=== PATIENT | male | born 1955 | race Caucasian/White ===

== ENCOUNTER → 2018-08-21 09:14 | Outpatient (CLI) | payer MEDICARE, SELFPAY ==
[2018-08-21 09:43] LABS: Add Manual Diff / Slide Review NO; Basophils Absolute Auto 100 /uL (0-100); Basophils Percent Auto 0.6 % (0-2); Eosinophils Absolute Auto 300 /uL (0-450); Eosinophils Percent Auto 2.6 % (2-4); Hematocrit 45.3 % (41-53); Hemoglobin 15.7 g/dL (13.5-17.5); Lymphocytes Absolute Auto 2000 /uL (1100-4500); Mean Corpuscular HGB Conc 34.6 % (30-36); Mean Corpuscular Hemoglobin 32.8 PG (26-34); Mean Corpuscular Volume 94.6 fL (80-100); Monocytes Absolute Auto 1000 /uL (0-900); Monocytes Percent Auto 10.6 % (3-14); Neutrophils Absolute Auto 6500 /uL (1500-7000); Neutrophils Percent Auto 66.2 % (50-75); Platelet Count 309 X10^3/uL (150-400); Red Blood Cell Count 4.79 X10^6/uL (4.5-5.9); Red Cell Distribution Width 14.5 % (11.6-14.8); White Blood Cell Count 9.9 X10^3/uL (4.5-11.0)
[2018-08-21 10:08] LABS: Alanine Aminotransferase 28 IU/L (21-72); Albumin 4.3 g/dL (3.5-5.0); Albumin Globulin Ratio 1.3 (1.0-2.8); Alkaline Phosphatase 76 U/L (38-126); Aspartate Aminotransferase 20 IU/L (17-59); BUN Creatinine Ratio 18.9 (6-22); Bilirubin Total 0.9 mg/dL (0.2-1.3); Blood Urea Nitrogen 17 mg/dL (9-20); Calcium 9.6 mg/dL (8.4-10.2); Carbon Dioxide 30 mmol/L (22-32); Chloride 101 mmol/L (98-107); Cholesterol 162 mg/dL (140-199); Estimated Glomerular Filt Rate > 60.0 mL/min (>60); Globulin 3.3 g/dL (1.7-4.1); Glucose 110 mg/dL (80-110); HDL Cholesterol 49 mg/dL (40-60); HEMOLYSIS < 15 (0-50); LDL Cholesterol Calculated 100 mg/dL (<100); Potassium 4.3 mmol/L (3.4-5.1); Sodium 138 mmol/L (137-145); Total Protein 7.6 g/dL (6.3-8.2); Triglycerides 66 mg/dL (35-150)
[2018-08-21 10:38] LABS: Prostate Specific Antigen 0.584 ng/mL (0.10-4.00)
== END ==
PROVIDERS: Visit Provider Hospitalist
DX: E78.5 Hyperlipidemia, unspecified (principal)
CPT/HCPCS: 36415; 80053; 80061; 84153; 85025

== ENCOUNTER → 2019-04-28 09:06 | Outpatient (CLI) | payer MEDICARE, SELFPAY ==
[2019-04-28 10:01] LABS: Add Manual Diff / Slide Review NO; Basophils Absolute Auto 100 /uL (0-100); Basophils Percent Auto 0.7 % (0-2); Eosinophils Absolute Auto 400 /uL (0-450); Eosinophils Percent Auto 3.9 % (2-4); Hematocrit 44.5 % (41-53); Hemoglobin 15.4 g/dL (13.5-17.5); Lymphocytes Absolute Auto 2300 /uL (1100-4500); Lymphocytes Percent Auto 24.5 % (25-40); Mean Corpuscular HGB Conc 34.6 % (30-36); Mean Corpuscular Hemoglobin 32.6 PG (26-34); Mean Corpuscular Volume 94.2 fL (80-100); Monocytes Absolute Auto 1100 /uL (0-900); Monocytes Percent Auto 11.8 % (3-14); Neutrophils Absolute Auto 5600 /uL (1500-7000); Neutrophils Percent Auto 59.1 % (50-75); Platelet Count 286 X10^3/uL (150-400); Red Blood Cell Count 4.72 X10^6/uL (4.5-5.9); Red Cell Distribution Width 14.3 % (11.6-14.8); White Blood Cell Count 9.5 X10^3/uL (4.5-11.0)
[2019-04-28 10:07] LABS: Alanine Aminotransferase 26 IU/L (<50); Albumin 4.2 g/dL (3.5-5.0); Albumin Globulin Ratio 1.2 (1.0-2.8); Alkaline Phosphatase 77 U/L (38-126); Aspartate Aminotransferase 25 IU/L (17-59); BUN Creatinine Ratio 16.7 (6-22); Bilirubin Total 0.9 mg/dL (0.2-1.3); Blood Urea Nitrogen 15 mg/dL (9-20); Calcium 9.1 mg/dL (8.4-10.2); Carbon Dioxide 31 mmol/L (22-32); Chloride 101 mmol/L (98-107); Cholesterol 156 mg/dL (140-199); Estimated Glomerular Filt Rate > 60.0 mL/min (>60); Globulin 3.6 g/dL (1.7-4.1); Glucose 101 mg/dL (80-110); HDL Cholesterol 38 mg/dL (40-60); HEMOLYSIS < 15 (0-50); LDL Cholesterol Calculated 105 mg/dL (<100); Potassium 3.8 mmol/L (3.4-5.1); Sodium 139 mmol/L (137-145); Total Protein 7.8 g/dL (6.3-8.2); Triglycerides 65 mg/dL (35-150)
== END ==
PROVIDERS: PCP Family Medicine; Referring Provider Family Medicine; Visit Provider Family Medicine
DX: E78.5 Hyperlipidemia, unspecified (principal); Z12.5 Encounter for screening for malignant neoplasm of prostate
CPT/HCPCS: 36415; 80053; 80061; 85025; G0103

== ENCOUNTER → 2020-03-12 08:40 | Outpatient (CLI) | payer MEDICARE, SELFPAY ==
[2020-03-12 09:18] LABS: Add Manual Diff / Slide Review NO; Basophils Absolute Auto 100 /uL (0-100); Basophils Percent Auto 0.9 % (0-2); Eosinophils Absolute Auto 500 /uL (0-450); Eosinophils Percent Auto 6.4 % (2-4); Hematocrit 45.5 % (41-53); Hemoglobin 15.2 g/dL (13.5-17.5); Lymphocytes Absolute Auto 2200 /uL (1100-4500); Lymphocytes Percent Auto 27.4 % (25-40); Mean Corpuscular HGB Conc 33.5 % (30-36); Mean Corpuscular Hemoglobin 31.8 PG (26-34); Mean Corpuscular Volume 94.9 fL (80-100); Monocytes Absolute Auto 1100 /uL (0-900); Monocytes Percent Auto 12.8 % (3-14); Neutrophils Absolute Auto 4300 /uL (1500-7000); Neutrophils Percent Auto 52.5 % (50-75); Platelet Count 290 X10^3/uL (150-400); Red Cell Distribution Width 14.1 % (11.6-14.8); White Blood Cell Count 8.2 X10^3/uL (4.5-11.0)
[2020-03-12 09:44] LABS: HEMOLYSIS < 15 (0-50); Potassium 4.3 mmol/L (3.4-5.1)
[2020-03-12 09:45] LABS: Alanine Aminotransferase 23 IU/L (<50); Albumin 3.9 g/dL (3.5-5.0); Albumin Globulin Ratio 1.1 (1.0-2.8); Alkaline Phosphatase 81 U/L (38-126); Aspartate Aminotransferase 21 IU/L (17-59); BUN Creatinine Ratio 15.7 (6-22); Bilirubin Total 0.8 mg/dL (0.2-1.3); Blood Urea Nitrogen 14 mg/dL (9-20); Calcium 9.1 mg/dL (8.4-10.2); Carbon Dioxide 31 mmol/L (22-32); Chloride 104 mmol/L (98-107); Estimated Glomerular Filt Rate > 60.0 mL/min (>60); Globulin 3.4 g/dL (1.7-4.1); Glucose 112 mg/dL (80-110); Sodium 139 mmol/L (137-145); Total Protein 7.3 g/dL (6.3-8.2)
[2020-03-12 10:19] LABS: Thyroid Stimulating Hormone 3.27 uIU/mL (0.47-4.68)
== END ==
PROVIDERS: PCP Family Medicine; Referring Provider Family Medicine; Visit Provider Family Medicine
DX: E78.5 Hyperlipidemia, unspecified (principal); E78.00 Pure hypercholesterolemia, unspecified; N52.9 Male erectile dysfunction, unspecified
CPT/HCPCS: 36415; 80053; 84153; 84443; 85025

== ENCOUNTER → 2020-08-02 08:32 | Outpatient (CLI) | payer MEDICARE, SELFPAY ==
[2020-08-02 10:27] LABS: Alanine Aminotransferase 23 IU/L (<50); Albumin 3.8 g/dL (3.5-5.0); Albumin Globulin Ratio 1.1 (1.0-2.8); Alkaline Phosphatase 90 U/L (38-126); Aspartate Aminotransferase 24 IU/L (17-59); BUN Creatinine Ratio 15.7 (6-22); Bilirubin Total 0.8 mg/dL (0.2-1.3); Blood Urea Nitrogen 14 mg/dL (9-20); Calcium 9.3 mg/dL (8.4-10.2); Carbon Dioxide 29 mmol/L (22-32); Chloride 102 mmol/L (98-107); Estimated Glomerular Filt Rate > 60.0 mL/min (>60); Globulin 3.5 g/dL (1.7-4.1); Glucose 111 mg/dL (80-110); HEMOLYSIS < 15 (0-50); Potassium 4.7 mmol/L (3.4-5.1); Sodium 138 mmol/L (137-145); Total Protein 7.3 g/dL (6.3-8.2)
[2020-08-02 10:30] LABS: Hemoglobin A1C% w Est Avg Glu 5.9 % (4.0-6.0)
== END ==
PROVIDERS: PCP Family Medicine; Referring Provider Family Medicine; Visit Provider Family Medicine
DX: R73.9 Hyperglycemia, unspecified (principal)
CPT/HCPCS: 36415; 80053; 83036

== ENCOUNTER → 2021-03-07 09:03 | Outpatient (CLI) | payer MEDICARE, SELFPAY ==
[2021-03-07 12:25] LABS: Add Manual Diff / Slide Review NO; Basophils Absolute Auto 100 /uL (0-100); Eosinophils Absolute Auto 600 /uL (0-450); Eosinophils Percent Auto 6.8 % (2-4); Hematocrit 45.8 % (41-53); Hemoglobin 15.6 g/dL (13.5-17.5); Lymphocytes Absolute Auto 2600 /uL (1100-4500); Lymphocytes Percent Auto 28.8 % (25-40); Mean Corpuscular HGB Conc 34.1 % (30-36); Mean Corpuscular Hemoglobin 32.8 PG (26-34); Mean Corpuscular Volume 96.2 fL (80-100); Monocytes Absolute Auto 1000 /uL (0-900); Monocytes Percent Auto 11.5 % (3-14); Neutrophils Absolute Auto 4700 /uL (1500-7000); Neutrophils Percent Auto 51.9 % (50-75); Platelet Count 346 X10^3/uL (150-400); Red Blood Cell Count 4.76 X10^6/uL (4.5-5.9); Red Cell Distribution Width 13.9 % (11.6-14.8)
[2021-03-07 13:45] LABS: Alanine Aminotransferase 25 IU/L (<50); Albumin 4.1 g/dL (3.5-5.0); Albumin Globulin Ratio 1.2 (1.0-2.8); Alkaline Phosphatase 82 U/L (38-126); Aspartate Aminotransferase 23 IU/L (17-59); BUN Creatinine Ratio 13.2 (6-22); Blood Urea Nitrogen 12 mg/dL (9-20); Calcium 9.3 mg/dL (8.4-10.2); Carbon Dioxide 31 mmol/L (22-32); Chloride 103 mmol/L (98-107); Cholesterol 163 mg/dL (140-199); Estimated Glomerular Filt Rate > 60.0 mL/min (>60); Globulin 3.4 g/dL (1.7-4.1); Glucose 94 mg/dL (80-110); HDL Cholesterol 41 mg/dL (40-60); HEMOLYSIS < 15 (0-50); LDL Cholesterol Calculated 97 mg/dL (<100); Potassium 4.5 mmol/L (3.4-5.1); Sodium 139 mmol/L (137-145); Total Protein 7.5 g/dL (6.3-8.2); Triglycerides 127 mg/dL (35-150)
[2021-03-07 14:07] LABS: Prostate Specific Antigen Scrn 0.665 ng/mL (0.1-4.0)
[2021-03-07 14:08] LABS: TSH w/ Reflex to FT4 3.53 uIU/mL (0.47-4.68)
[2021-03-07 14:41] LABS: Hemoglobin A1C% w Est Avg Glu 5.6 % (4.0-6.0)
== END ==
PROVIDERS: PCP Family Medicine; Referring Provider Family Medicine; Visit Provider Family Medicine
DX: Z00.00 Encounter for general adult medical examination without abnormal findings (principal); E78.5 Hyperlipidemia, unspecified; Z12.5 Encounter for screening for malignant neoplasm of prostate
CPT/HCPCS: 36415; 80053; 80061; 83036; 84443; 85025; G0103

== ENCOUNTER → 2022-03-09 08:54 | Outpatient (CLI) | payer MEDICARE, SELFPAY ==
[2022-03-09 10:11] LABS: Add Manual Diff / Slide Review NO; Basophils Absolute Auto 100 /uL (0-100); Basophils Percent Auto 0.6 % (0-2); Eosinophils Absolute Auto 400 /uL (0-450); Hematocrit 42.8 % (41-53); Hemoglobin 14.5 g/dL (13.5-17.5); Lymphocytes Absolute Auto 2300 /uL (1100-4500); Lymphocytes Percent Auto 23.4 % (25-40); Mean Corpuscular HGB Conc 33.9 % (30-36); Mean Corpuscular Hemoglobin 32.3 PG (26-34); Mean Corpuscular Volume 95.4 fL (80-100); Monocytes Absolute Auto 1100 /uL (0-900); Monocytes Percent Auto 11.3 % (3-14); Neutrophils Absolute Auto 5900 /uL (1500-7000); Neutrophils Percent Auto 60.7 % (50-75); Platelet Count 303 X10^3/uL (150-400); Red Blood Cell Count 4.49 X10^6/uL (4.5-5.9); Red Cell Distribution Width 14.2 % (11.6-14.8); White Blood Cell Count 9.7 X10^3/uL (4.5-11.0)
[2022-03-09 11:13] LABS: Alanine Aminotransferase 22 IU/L (<50); Albumin Globulin Ratio 1.2 (1.0-2.8); Alkaline Phosphatase 87 U/L (38-126); Aspartate Aminotransferase 20 IU/L (17-59); BUN Creatinine Ratio 17.1 (6-22); Blood Urea Nitrogen 14 mg/dL (9-20); Calcium 8.9 mg/dL (8.4-10.2); Carbon Dioxide 32 mmol/L (22-32); Chloride 100 mmol/L (98-107); Cholesterol 166 mg/dL (140-199); Estimated Glomerular Filt Rate > 60 mL/min (>60); Globulin 3.4 g/dL (1.7-4.1); Glucose 96 mg/dL (80-110); HDL Cholesterol 49 mg/dL (40-60); HEMOLYSIS < 15 (0-50); LDL Cholesterol Calculated 101 mg/dL (<100); Potassium 4.4 mmol/L (3.4-5.1); Sodium 139 mmol/L (137-145); Total Protein 7.4 g/dL (6.3-8.2); Triglycerides 82 mg/dL (35-150)
[2022-03-09 11:37] LABS: TSH w/ Reflex to FT4 5.19 uIU/mL (0.47-4.68)
[2022-03-09 11:41] LABS: Prostate Specific Antigen 0.777 ng/mL (0.10-4.00)
[2022-03-09 12:21] LABS: Free T4, Direct Thyroxine 1.33 ng/dL (0.78-2.19)
[2022-03-09 15:28] LABS: Hemoglobin A1C% w Est Avg Glu 5.8 % (4.0-6.0)
== END ==
PROVIDERS: PCP Family Medicine; Referring Provider Family Medicine; Visit Provider Family Medicine
DX: C83.37 Diffuse large B-cell lymphoma, spleen (principal); R73.9 Hyperglycemia, unspecified; E78.5 Hyperlipidemia, unspecified; Z00.00 Encounter for general adult medical examination without abnormal findings
CPT/HCPCS: 36415; 80053; 80061; 83036; 84153; 84439; 84443; 85025

== ENCOUNTER → 2022-06-09 07:58 | Outpatient (CLI) | payer MEDICARE, SELFPAY ==
[2022-06-09 09:48] LABS: Free T4, Direct Thyroxine 1.43 ng/dL (0.78-2.19)
[2022-06-09 10:02] LABS: Thyroid Stimulating Hormone 3.38 uIU/mL (0.47-4.68)
== END ==
PROVIDERS: PCP Family Medicine; Referring Provider Family Medicine; Visit Provider Family Medicine
DX: E03.9 Hypothyroidism, unspecified (principal)
CPT/HCPCS: 36415; 84439; 84443

== ENCOUNTER → 2023-03-13 09:08 | Outpatient (CLI) | payer MEDICARE, SELFPAY ==
--- NOTE | 2023-03-13 | DI.RAD.S_ITS ---
PROCEDURE: XR KNEE LT 3V INDICATIONS: LEFT KNEE PAIN TECHNIQUE: 3 views of the knee were acquired. COMPARISON: [facility], KNEE 1-2 VIEWS RIGHT, 03/29/2010, 15:49. [facility], KNEE 1-2 VIEWS LEFT, 12/22/2009, 15:17. FINDINGS: Bones: Left knee arthroplasty. There is minimal subsidence of the tibial component. Increased mixed lucent and sclerotic appearance surrounding the hardware. There also ossification superior to the patella. Soft tissues: No joint effusion. No suspicious soft tissue calcifications. IMPRESSION: Increased mixed lucent and sclerotic appearance surrounding the hardware of the knee arthroplasty. Increased ossifications superior to the patella. If further imaging is desired, consider cross-sectional imaging versus bone scan. Dictated by: Hawk Hooper M.D. on 03/13/2023 at 13:00 Approved by: Hawk Hooper M.D. on 03/13/2023 at 13:03
[2023-03-13 09:44] LABS: Hematocrit 46.4 % (41-53); Hemoglobin 15.9 g/dL (13.5-17.5); Mean Corpuscular HGB Conc 34.2 % (30-36); Mean Corpuscular Hemoglobin 32.2 PG (26-34); Mean Corpuscular Volume 94.2 fL (80-100); Platelet Count 281 X10^3/uL (150-400); Red Blood Cell Count 4.93 X10^6/uL (4.5-5.9); White Blood Cell Count 8.4 X10^3/uL (4.5-11.0)
[2023-03-13 10:24] LABS: Free T4, Direct Thyroxine 1.35 ng/dL (0.78-2.19)
[2023-03-13 10:38] LABS: Thyroid Stimulating Hormone 3.01 uIU/mL (0.47-4.68)
[2023-03-13 13:26] LABS: Neutrophils Absolute Manual 4704 /uL (3000-5900); Platelet Estimate Adequate on smear; RBC Morphology Normal Morphology; Total Cells Counted 100
[2023-03-13 21:04] LABS: Alanine Aminotransferase 25 IU/L (<50); Albumin 4.3 g/dL (3.5-5.0); Albumin Globulin Ratio 1.1 (1.0-2.8); Alkaline Phosphatase 83 U/L (38-126); Aspartate Aminotransferase 28 IU/L (17-59); BUN Creatinine Ratio 16.9 (6-22); Bilirubin Total 1.1 mg/dL (0.2-1.3); Blood Urea Nitrogen 15 mg/dL (9-20); Calcium 9.5 mg/dL (8.4-10.2); Carbon Dioxide 24 mmol/L (22-32); Chloride 103 mmol/L (98-107); Cholesterol 157 mg/dL (140-199); Estimated Glomerular Filt Rate > 60 mL/min (>60); Glucose 95 mg/dL (80-110); HDL Cholesterol 40 mg/dL (40-60); HEMOLYSIS < 15 (0-50); LDL Cholesterol Calculated 103 mg/dL (<100); Potassium 4.1 mmol/L (3.4-5.1); Sodium 137 mmol/L (137-145); Total Protein 8.3 g/dL (6.3-8.2); Triglycerides 71 mg/dL (35-150)
[2023-03-13 21:34] LABS: Prostate Specific Antigen Scrn 1.06 ng/mL (0.1-4.0)
== END ==
PROVIDERS: PCP Family Medicine; Referring Provider Family Medicine; Visit Provider Family Medicine
DX: Z00.00 Encounter for general adult medical examination without abnormal findings; C83.37 Diffuse large B-cell lymphoma, spleen; R73.9 Hyperglycemia, unspecified; E03.9 Hypothyroidism, unspecified; Z12.5 Encounter for screening for malignant neoplasm of prostate; E78.5 Hyperlipidemia, unspecified; Z96.652 Presence of left artificial knee joint
CPT/HCPCS: 36415; 73562; 80053; 80061; 84439; 84443; 85025; G0103

== ENCOUNTER → 2023-08-02 10:02 | Outpatient (CLI) | payer MEDICARE, SELFPAY ==
[2023-08-02 10:24] LABS: Add Manual Diff / Slide Review NO; Basophils Absolute Auto 100 /uL (0-100); Basophils Percent Auto 0.8 % (0-2); Eosinophils Absolute Auto 400 /uL (0-450); Eosinophils Percent Auto 4.6 % (2-4); Hematocrit 43.1 % (41-53); Hemoglobin 14.8 g/dL (13.5-17.5); Lymphocytes Absolute Auto 2600 /uL (1100-4500); Mean Corpuscular HGB Conc 34.4 % (30-36); Mean Corpuscular Hemoglobin 32.9 PG (26-34); Mean Corpuscular Volume 95.7 fL (80-100); Monocytes Absolute Auto 1000 /uL (0-900); Monocytes Percent Auto 10.9 % (3-14); Neutrophils Absolute Auto 5400 /uL (1500-7000); Neutrophils Percent Auto 56.7 % (50-75); Platelet Count 282 X10^3/uL (150-400); Red Cell Distribution Width 14.4 % (11.6-14.8); White Blood Cell Count 9.5 X10^3/uL (4.5-11.0)
[2023-08-02 10:53] LABS: Albumin 4.3 g/dL (3.5-5.0); BUN Creatinine Ratio 21.3 (6-22); Blood Urea Nitrogen 20 mg/dL (9-20); Calcium 9.1 mg/dL (8.4-10.2); Carbon Dioxide 30 mmol/L (22-32); Chloride 105 mmol/L (98-107); Estimated Glomerular Filt Rate > 60 mL/min (>60); Glucose 102 mg/dL (80-110); HEMOLYSIS < 15 (0-50); Potassium 3.9 mmol/L (3.4-5.1); Sodium 139 mmol/L (137-145)
[2023-08-02 11:03] LABS: Prealbumin 25.3 mg/dL (17.6-36.0)
[2023-08-02 11:10] LABS: Vitamin D 25 Hydroxy (D3) 40.9 ng/mL (30.0-100.0)
== END ==
LOC: RESP 10:03
PROVIDERS: PCP Family Medicine; Referring Provider Orthopaedic Surgery Adult Reconstructive Orthopaedic Surgery; Visit Provider Orthopaedic Surgery Adult Reconstructive Orthopaedic Surgery
DX: R77.0 Abnormality of albumin; R73.9 Hyperglycemia, unspecified; E55.9 Vitamin D deficiency, unspecified; Z01.818 Encounter for other preprocedural examination; Z01.812 Encounter for preprocedural laboratory examination
CPT/HCPCS: 36415; 80048; 82040; 82306; 83036; 84134; 85025

== ENCOUNTER → 2023-08-03 06:57 | Outpatient (CLI) | payer MEDICARE, SELFPAY | PROVIDERS: PCP Family Medicine; Referring Provider Orthopaedic Surgery Adult Reconstructive Orthopaedic Surgery; Visit Provider Orthopaedic Surgery Adult Reconstructive Orthopaedic Surgery | DX: Z01.818 Encounter for other preprocedural examination (principal) | CPT/HCPCS: 93005 ==

== ENCOUNTER 2023-09-21 08:51 | Inpatient (IN) | payer MEDICARE, SELFPAY ==
[2023-09-11 08:18] VITALS: BMI 32.4
[2023-09-21] VITALS (15 sets, daily range): BP systolic 98–136; BP diastolic 46–81; PULSE 71–100; RESP 14–18; TEMP 36.1–36.6; O2SAT 93–100; BMI 32.3
--- NOTE | 2023-09-21 06:00 | DI.RAD.S_ITS ---
PROCEDURE: XR KNEE LT 1TO2V INDICATIONS: L TKA rev TECHNIQUE: 2 view(s) of the knee acquired. COMPARISON: [facility], CR, XR KNEE LT 3V, 03/13/2023, 9:11. [facility], CR, XR KNEE 4+ VIEWS LEFT, 07/26/2023, 9:10. FINDINGS: Bones: Patient is status post knee joint arthroplasty. Hardware components are in expected positions. Visualized bony structures are intact. Soft tissues: Overlying postoperative changes are noted. IMPRESSION: Expected post-operative appearance of a knee arthroplasty. Dictated by: Mckenzie Brooke M.D. on 09/21/2023 at 16:41 Approved by: Mckenzie Brooke M.D. on 09/21/2023 at 16:42
[2023-09-21] MEDS: LACTATED RINGERS 1,000 ML 42 ML IV ×2 (09:34→12:34)
[2023-09-21] MEDS: MELOXICAM 7.5 MG TABLET 15 MG PO (09:34)
[2023-09-21] MEDS: ACETAMINOPHEN 325 MG TABLET 975 MG PO (09:34)
--- NOTE | 2023-09-21 10:18 | PM.PREOP ---
Pre-operative Note Interval Note History & Physical reviewed/Exam performed by Physician: Yes Changes to H&P: No
[2023-09-21] MEDS: CEFAZOLIN 2 GM/100 ML PREMIX 100 ML IV ×2 (10:49→21:40)
[2023-09-21] MEDS: TRANEXAMIC ACID 1,000 MG VIAL 1000 MG INJ ×2 (10:55→13:12)
--- NOTE | 2023-09-21 11:14 | SUR.OPER ---
Supine on padded OR bed. Pillow under head, arms secured on padded armboards <90 degree abduction. Safety belt across torso. Non-operative leg secured with tape over blanket over lower leg. Operative leg secured in Ad positioner. Foam padded brace at thigh of operative leg.
[2023-09-21] MEDS: ROPIVACAINE/EPI/CLONIDINE/KET 50 ML SYRINGE INJ (11:19)
[2023-09-21] MEDS: VANCOMYCIN 1,000 MG VIAL 1000 MG TOP (11:21)
--- NOTE | 2023-09-21 15:19 | P.OP_ITS ---
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 Post-op diagnosis: same Procedure & Clinicians Procedure: Revision femoral and tibial components of left total knee arthroplasty with robotic assistance Same procedure as scheduled: Yes Surgeon: Jadon Harris Handkerchief Cutter: Kristie Sommer Anesthesia Type: General, Spinal, Peripheral nerve block and Local Operative Notes Estimated Blood Loss (mL): 300 Tourniquet time (min): 120 Procedure in detail: Revision of femoral and tibial components of left total knee arthroplasty with Ruiz and [employer] revision total knee system with cone and stem fixation and robotic assistance Implants: * Size 8 left Oxinium constrained femoral component with L shaped 5 mm wedge posterior and distal on the lateral side, no augment on the posterior medial side, and a 15 mm distal medial augment with a 12 mm x 120 mm cemented stem * Size 20 left femoral cone * Size 7 left revision tibial base plate with 12 mm x 120 mm stem * Size 18 tibial cone * Retained patellar insert from primary surgery Procedure Summary: This 68-year-old male patient underwent a primary left total knee arthroplasty by 1 of my partners who has since retired in approximately 2009. He developed osteolysis and had ongoing pain and disability related to this. I obtained inflammatory markers which were normal as well as a knee aspiration which was negative for infection. His long leg scanogram indicated that he also had developed significant varus in his knee which I assumed was due to medial collapse of his implants. Intraoperatively this aligned with my experience as there was a large defect in the medial distal femur, as shown in the photograph below. Component removal did not result in any bone loss as neither the femoral nor the tibial implant was well fixed to bone and both were removed without the need for osteotomes in the bone cement interface. Robotic assistance was utilized to plan the procedure and eventually to prep for both the femoral and tibial sides. Prepping for the tibial side involved resecting down to a depth at which a 15 mm polyethylene insert was needed for balance. Prepping on the femoral side involved a large 15 mm augment in the area where he had had collapse in his distal medial femur. 12 mm x 120 mm stems were used on both sides. Cones were used on both sides. Following implantation he had appropriate balance, as it is shown on the screen shot from the robotic assistance below. Procedure in Detail: This patient was seen preoperatively and evaluated for knee pain which was refractory to numerous nonoperative treatment modalities. Their pain correlated with radiographic changes demonstrating osteolysis at the site of the prior total knee arthroplasty. The risks and benefits of continued nonoperative management versus operative management were discussed at length and all of the patient?s questions were answered. Additional educational materials providing further details beyond our discussion in clinic were provided via a publicly available patient education video which included the incidence of medical complications associated with total knee arthroplasty, reasons for revision following total knee arthroplasty, and patient satisfaction rates following total knee arthroplasty. With this understanding of the risks inherent to the procedure, the patient elected to move forward with operative management. Following preoperative optimization, the patient was scheduled for surgery. The patient was met in the preoperative holding area the day of the procedure and all questions were answered. The patient?s nares were swabbed with betadine in order to decolonize them from MRSA. Informed consent was signed and the left limb was marked with indelible ink.? The patient was brought back to the operating room where anesthesia was induced. The patient was transferred to the operating table and all bony prominences were padded. The operative site was prepped and draped in the usual sterile fashion. A second prep stick was utilized following drape placement. The incision was marked corresponding to the medial aspect of the tibial tubercle and the patella. Ioban was wrapped circumferentially around the knee. Prior to incision, tranexamic acid and cefazolin were administered. Templating images were displayed. A timeout procedure was performed verifying the patient?s identity, medical comorbidities, allergies, relevant medications, anesthesia type and the surgical plan. All present were in agreement. The assistance of a physician assistant service manager was required for positioning, room setup, soft tissue retraction and wound closure. Without this assistance, the procedure would have been significantly more challenging and time consuming.?? The tourniquet was inflated prior to incision. I made an anterior incision over the knee, dissected through the subcutaneous tissues and identified the lateral border of the VMO. Medial and lateral soft tissue flaps were developed. A medial parapatellar arthrotomy was performed through the prior arthrotomy site ensuring that adequate capsular tissue would remain for closure at the conclusion of the procedure. An intraosseous needle was inserted into the medial proximal tibia and 50 mL of normal saline with 1 mg of vancomycin were infiltrated into the bone in order to bathe all of the tissues in the surgical site with dilute vancomycin. The knee was brought into extension and the medial soft tissues were released off the joint line of the tibia. Tissue overlying the distal anterior femur was released to allow for later assessment for anterior notching but left in place. A portion of the retropatellar fat pad was excised while protecting the patellar tendon. The patella was everted. Osteophytes were excised and a lateral facetectomy was performed as there was significant bone lateral to the patellar button. The patella was released from its everted position.?? Debrided both gutters and sent these for culture. This involved releasing off of both sides of the arthrotomy and bluntly dissecting around to free up scar tissue. The medial peel was extended around to the posterior medial aspect of the tibia. The robotic pins for the Cori were inserted into the femur and the tibia. In the femur this was within the wound and in the tibia it was distal to the wound through a separate stab incision. Positioned the rays to be captured by the robotic platform and tested the knee. This demonstrated, as had been demonstrated on the long leg scanogram preoperatively as well as gross examination that the knee was in 15? of varus. Stressed and unstressed range of motion examinations were performed and a plan was constructed for the eventual balanced of the total knee using the legion platform. I then proceeded with component removal. I began by removing the polyethylene. It was an old pew hip so I used an osteotome to remove the post of the rotating platform insert and then removed the polyethylene. I found that the femoral component was grossly loose when I introduced an osteotome into the interface between the bone and the cement so this was tapped off. There was no bone loss as the femur had completely de bonded from the cement. There was some cement left behind on the femur. I then moved to the tibia. The tibia was exposed and I finished the medial peel around the posterior medial aspect of the base plate. I introduced an osteotome into the bone cement interface and again found that it was grossly loose. It was removed without the need for any disruption of the bone cement interface and left all of the cement behind, as photographed above. I then prepared the tibia. I initially began by exposing the cut tibial surface and removing all of the cement. This involved using a flag osteotome. The cement which went down into the diaphysis of the tibia was removed en bloc. The remainder of the cement on the joint surface was removed piecemeal. I then used the robotic system to sink the tibial joint resection down to an area at which I would achieve good bony contact. I sequentially moved this further down the tibia until I had achieved a good surface with which the base plate could interdigitate. I inserted a rigid Reamer down the tibial canal and prepped for a tibial cone off of this. Prepped for a long 20 mm cone. This involved using a Reamer. I then inserted the tibial cone trial. I ensured that there was good bony contact circumferentially around the entire cone. I placed a 12 mm x 120 mm stem trial along with a trial base plate. I initially placed a size 6 base plate but felt that a size 7 base plate would likely be used for final implantation. I then moved onto the femur. I mapped out the defects, the largest of which was in the medial distal femur. That is shown on the image above where red areas demarcate bony defects. I believe that the collapse of his medial femoral condyle is what had allowed him to end up in such an extreme of varus. I initially prep for a 10 mm distal medial augment but found that this was insufficient as there was still not good bony contact. I therefore prepped for a 15 mm distal medial augment. Posterior medially the bur resected bone in the area intended to the set point for the final implant so I did not use any augment there. I prepped for a 5 mm augment on the lateral side both posteriorly and distally. I then prepped for a femoral cone. This involved inserting a rigid Reamer, reaming off of that, and broaching for the smallest cone size. I then inserted the femoral trial including a 12 mm x 120 mm stem and found that there was conflict with the cone positioning. I therefore removed the cone trial, reinserted the femoral trial, inserted a rigid Reamer through the housing of the femoral trial to get a reference point which would not conflict with the femoral component, and re-prepped the area for the femoral cone, up sizing to a size 20 cone in the process. I had initially prepped for a size 18 which is the smallest cone and therefore plan to use the 2nd smallest sized cone on the femoral side. I inserted a trial cone for the size 20 as well as the femoral trial including the 12 mm x 120 mm stem and the corresponding augments that I had prepped for. I inserted the 15 mm polyethylene as well and trialed at that point in time. This indicated good balance in flexion and extension as is shown on the image above. This aligned with my intraoperative assessment. I was satisfied with the trials. I removed all of the components as well as the robotic rays and the bony ends were pulse lavaged and then soaked in a dilute mixture of Betadine and peroxide while final components were assembled on the back table. The bony ends were irrigated and cement was prepared. Cones were placed into both the femur and the tibia. Cement was placed on the entirety of the undersurface of the tibial component. Cement was placed onto the dry tibia and pressurized into the cancellous bone. I impacted the tibial component into place. Cement was removed. The tibia was reduced underneath the femur. A separate batch of cement was used for the femoral component. I placed cement onto the dry surface of the resected femur. I placed the femoral component as well as the intended polyethylene trial. Cement was removed from around the femur. I brought the knee into extension and manually pressurized the construct by pushing on the heel while the cement dried. The knee was bathed in a dilute mixture of betadine and peroxide. A mixture of Ropivacaine, Epinephrine, Clonidine and Toradol was infiltrated throughout the soft tissues into structures including the VMO, patellar tendon, quadriceps tendon, MCL and femoral periosteum. A low adductor canal block was also performed using this mixture. The knee was copiously irrigated with pulse lavage. Once cement had been allowed to dry the knee was again trialed. Range of motion was assessed by ensuring the knee could achieve full extension and assessing maximum passive knee flexion by elevating the femur and allowing the heel to passively fall towards the buttock. Gap symmetry was assessed by stressing the medial and lateral compartments in both extension and flexion. Laxity was assessed in both extension and flexion and the polyethylene trial was adjusted with shims as necessary. Patellar tracking was assessed with knee flexion. The tourniquet was let down and the polyethylene trial was removed. I inspected the knee inspected for excess cement and any residual bleeding. Once hemostasis was achieved I inserted the final polyethylene and ensured appropriate engagement of the dovetail locking mechanism.? I was satisfied with the trialing at this point in time. The arthrotomy was closed with absorbable interrupted suture ensuring that this extended to the top of the arthrotomy. This was backed up with running barbed suture throughout the arthrotomy. The skin was closed with 2-0 and 3-0 sutures. Surgical glue was applied and a soft dressing was placed.?The sponge, instrument and needle counts were reported as being correct at the end of the case.??No obvious complications occurred. The patient was transferred from the operating table back to a stretcher. The patient emerged from anesthesia without difficulty and was taken to the PACU in a stable condition.? Plan for aftercare: * Weightbearing as tolerated * Cefadroxil 500 mg BID to be prescribed for 2 weeks for PJI prophylaxis. Will receive an additional dose of ancef tonight in addition to the intraoperative ancef and intraosseous vancomycin administered during the procedure * Mobilization with nursing staff this evening in anticipation of physical therapy session tomorrow morning. Patient will arrive on the floor after PT has left for the evening and will not get a PT session tonight but still should get out of bed and ambulate short distances. * Aspirin 81 twice per day for DVT prophylaxis * Multimodal pain regimen with no IV opioids ordered * Anticipate discharge home tomorrow * Follow up at [facility] in 2 weeks * Detailed postoperative instructions available at [email or web address]
[2023-09-21] MEDS: ONDANSETRON 4 MG/2 ML INJ IV (15:57)
[2023-09-21] MEDS: hydrOXYzine 50 MG/ML INJ 25 MG IM (15:59)
[2023-09-21] MEDS: METOCLOPRAMIDE 10 MG/2 ML INJ IV (15:59)
[2023-09-21] MEDS: OXYCODONE IR 5 MG TABLET PO (16:06)
[2023-09-21] MEDS: fentaNYL 100 MCG/2 ML INJ IV (16:16)
[2023-09-21] MEDS: LACTATED RINGERS 1,000 ML 100 ML IV (18:33)
--- NOTE | 2023-09-21 18:57 | PC.NURSE ---
Arrived from PACU @ 1635 Resting quietly, arouses when spoken too. IVF infusing as per MD orders w/o incidense. SEBASTIEN dsg intact/patent Satisfactory post op course. Call light w/in reach. Bed alarm on for pt safety. Continue w/plan of care.
[2023-09-21] MEDS: DOCUSATE 100 MG CAPSULE PO (21:40)
[2023-09-21] MEDS: ATORVASTATIN 20 MG TABLET 10 MG PO (21:40)
[2023-09-21] MEDS: ASPIRIN EC 81 MG TABLET PO (21:41)
[2023-09-21] MEDS: OXYCODONE IR 10 MG TABLET PO (21:55)
[2023-09-22 04:36] VITALS: BP 113/58; PULSE 89; RESP 14; TEMP 36.3; O2SAT 100
[2023-09-22] MEDS: CEFAZOLIN 2 GM/100 ML PREMIX 100 ML IV (05:07)
[2023-09-22] MEDS: ACETAMINOPHEN 325 MG TABLET 650 MG PO (05:08)
[2023-09-22 07:10] LABS: Hemoglobin 11.8 g/dL (13.5-17.5)
[2023-09-22] MEDS: LEVOTHYROXINE 50 MCG TABLET PO (07:51)
[2023-09-22] MEDS: OXYCODONE IR 10 MG TABLET PO (07:57)
[2023-09-22 08:00] VITALS: BP 92/59; PULSE 67; RESP 16; TEMP 36.4; O2SAT 100
[2023-09-22] MEDS: ASPIRIN EC 81 MG TABLET PO (08:42)
[2023-09-22] MEDS: DOCUSATE 100 MG CAPSULE PO (08:42)
--- NOTE | 2023-09-22 09:28 | PM.DS.1 ---
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 Post-op diagnosis: same Procedure & Clinicians Procedure: Revision femoral and tibial components of left total knee arthroplasty with robotic assistance Same procedure as scheduled: Yes Surgeon: Jadon Harris Media Relations Coordinator: Kristie Sommer Anesthesia Type: General, Spinal, Peripheral nerve block and Local Operative Notes Estimated Blood Loss (mL): 300 Tourniquet time (min): 120 Procedure in detail: Revision of femoral and tibial components of left total knee arthroplasty with Ruiz and [employer] revision total knee system with cone and stem fixation and robotic assistance Implants: Size 8 left Oxinium constrained femoral component with L shaped 5 mm wedge posterior and distal on the lateral side, no augment on the posterior medial side, and a 15 mm distal medial augment with a 12 mm x 120 mm cemented stem Size 20 left femoral cone Size 7 left revision tibial base plate with 12 mm x 120 mm stem Size 18 tibial cone Retained patellar insert from primary surgery Discharge Providers Provider Date of admission: 09/21/23 08:51 Discharge Date: 09/22/23 Primary care physician: Dre Hunter DO Consults: 09/11/23 09:36 Consult to Anesthesiology Routine Comment: Consulting Provider: Anesthesiologist Reason for consultation: PAC courtesy re: abnormal pre-op EKG 09/21/23 06:00 Consult to Anesthesiology Routine Comment: Consulting Provider: Anesthesiologist Reason for consultation: Regional block for post operative pain control 09/21/23 17:19 Consult to Discharge Planning Routine Comment: Consult to Physical Therapy Evaluate & Treat Comment: Physician Instructions: postop TKA protocol Discharge provider: Kristie Sommer PA-C Summary Hospital Course Discharge Diagnosis: Osteolysis of left total knee arthroplasty, s/p revision of femoral and tibial components Hospital Course: Mr Flores's hospital course was unremarkable. On the morning of POD# 1, he was feeling well. He c/o soreness in his left knee as well as CHEATHAM from oxycodone; he was willing to try tramadol for pain instead. He was eating and voiding without difficulty. His SEBASTIEN drain had not been functioning since surgery; this was changed at bedside. Exam Vital Signs (past 8 hours): - 09/22/23 04:36 09/22/23 08:00 Temperature 97.3 F L 97.5 F L Pulse Rate 89 67 Respiratory Rate 14 16 Blood Pressure 113/58 L 92/59 L Pulse Oximetry 100 100 Oxygen Delivery Method Nasal Cannula Oxygen Flow Rate 2 Narrative Exam Narrative: 4/5 strength in hip flexors, quadriceps, hamstrings; 5/5 DF, PF, EHL on left. Sensation to light touch intact, calf soft and compressible. New SEBASTIEN system placed and functioning. Cultures sent intraoperatively: GS showed no organisms, aerobic preliminarily no growth, anaerobic pending. Objective Labs 09/22/23 06:18 Labs: Laboratory Results - last 24 hr 09/22/23 06:18 Hgb 11.8 L Hct 35.0 L PFSH Medical History (Updated 07/20/23 @ 09:32 by Gracia Jung PA-C) Medicare annual wellness visit, subsequent Well adult exam Hypothyroid Hyperglycemia Erectile dysfunction Encounter for well adult exam without abnormal findings Plantar fasciitis Hyperlipidemia Lymphoma (~2015) Rheumatoid arthritis Surgical History (Updated 09/22/23 @ 10:17 by Kristie Sommer PA-C) History of right cataract extraction History of total left knee replacement History of total right knee replacement Anesthesia H/O splenectomy (~2017) Family History Father Heart disease Mother Age: 95 High cholesterol Social History household members: spouse Smoking Status: Former smoker Tobacco: How many years used: 5 Smokeless tobacco user: chewing tobacco (Quit 2019) quit status: considering quitting alcohol intake: former substance use type: does not use Discharge Assessment & Plan Assessment and Plan Assessment: Osteolysis of left total knee arthroplasty, s/p revision of femoral and tibial components Plan of Treatment: Discharge home after PT, multimodal pain control, Cefadroxil BID x 2 weeks, outpt PT, ASA 81mg BID for VTE prophylaxis. Will review final cultures at postop. Discharge Plan Discharge Plan Patient Disposition: Home Discharge orders & Medications Prescriptions: New tramadol 50 mg Tablet 50 mg PO Q4-6H PRN (Reason: Pain, Moderate (4-6)) Qty: 30 0RF cefadroxil 500 mg capsule 500 mg PO BID Qty: 28 0RF Continued atorvastatin [Lipitor] 10 mg tablet 10 mg PO QDAY Qty: 90 3RF meloxicam 15 mg tablet 15 mg PO DAILY Qty: 30 0RF Rx Instructions: do not combine this with other NSAIDS. Ok to take with tylenol. levothyroxine 50 mcg tablet 50 mcg PO DAILY Qty: 90 3RF Rx Instructions: Take one tablet by mouth daily ibuprofen [Advil] 200 mg tablet 200 mg PO Q6H PRN (Reason: Pain) sildenafil (pulm.hypertension) 20 mg tablet 20 mg PO PRN PRN (Reason: Sexual Activity) Rx Instructions: Take 2-3 45 minutes prior to sexual activity Follow up/Referrals: Dre Hunter DO [Primary Care Provider] - Jadon Harris MD [Physician] - 10/05/23 9:00 am (Follow up w/ Eddie Rondon PA-C, at [facility] office in [place].) Diet/Activity/Treatments Diet: Diet as Tolerated Activity: Weightbearing as tolerated. Walk frequently! Cold/Heat Therapy: Ice to knee as needed for pain. Skin/Wound/Dressing Care Report to your healthcare provider any signs of infection, such as:: chills, fever, night sweats, unusual drainage and unusual redness Dressing: May remove LETTY wrap and shower on 09/24/2023. Leave Aquacel dressing place until follow up in office. No bathing or otherwise soaking incision. Call the office if the dressing becomes saturated inside. Visit Report/Discharge Packet Instructions: DI for Knee Replacement, DI for Prescription Opioid Use Stand Alone Forms: Patient Portal/API, Stroke Signs & Symptoms, Surgery Discharge Discharge Data Primary Care Provider: Dre Hunter Quality VTE Deep Vein Thrombosis/Pulmonary Embolism Present on Admission: No
[2023-09-22] MEDS: MELOXICAM 7.5 MG TABLET 15 MG PO (09:30)
--- NOTE | 2023-09-22 10:40 | PT.IIE ---
Current Diagnoses Wear of articular bearing surface of other internal prosthetic joint, initial encounter (09/21/23) Presence of unspecified artificial knee joint (09/21/23) Surgery Performed Operation Date: 09/21/23 10:45 Actual Procedures p Total Knee Arthroplasty Revision - Robot femoral and entire tibial component(Left) - Jadon Harris MD Surgical History (Last Updated 09/11/23 @ 09:08 by Gina Wilson RN) Anesthesia H/O splenectomy (~2017) History of right cataract extraction History of total left knee replacement History of total right knee replacement Medical History (Last Updated 03/13/23 @ 09:11 by Dre Hunter DO) Encounter for well adult exam without abnormal findings Erectile dysfunction Hyperglycemia Hyperlipidemia Hypothyroid Lymphoma (~2015) Medicare annual wellness visit, subsequent Plantar fasciitis Rheumatoid arthritis Well adult exam Physical Therapy Inpatient Evaluation/Re-Eval M1 PT/OT-IP Prior Functional Status Start: 09/22/23 12:48 Freq: NEEDED Status: Active Protocol: Document 09/22/23 10:40 AB (Rec: 09/22/23 13:00 AB [id number]) Medical Review Prior Functional Status Medical History Reviewed Yes Communication able to make needsk nown Mobility and Gait pt stated that he was independent with all mobilities and ambulation without AD Social History Household Members spouse Living Arrangements House Number of Floors (Floors) One Floor Number of Stairs To Enter/Railing? no steps to enter Home Environment Standard Height Toilet,Walk in Shower Home Equipment Front Wheel Walker,Raised Toilet Seat w/Armrests,Hand Held Shower M2 PT-IP Current Condition Start: 09/22/23 12:48 Freq: NEEDED Status: Active Protocol: Document 09/22/23 10:40 AB (Rec: 09/22/23 13:00 AB [id number]) Physical Therapy Current Condition Current Condition Evaluation Date 09/22/23 Treatment Diagnosis s/p L TKA revision; difficulty in walking Onset Date 09/21/23 M3 PT-IP Subjective Start: 09/22/23 12:48 Freq: NEEDED Status: Active Protocol: Document 09/22/23 10:40 AB (Rec: 09/22/23 13:00 AB [id number]) Subjective Physical Therapy Visit Type Type Initial Evaluation Visit Start Time 10:40 Visit Stop Time 11:40 Number of ELIGIBILITY COUNSELOR Visits 0 Physical Therapy Visit Comments Patient Comments agreeable to do PT Therapy Pain Assessment Pain When Pain Assessed At Rest Pain Present Pain Present Pain Reported Location left knee Intensity 7 Scale Used increases to 8/10 with mobility Pain Behaviors Guarding Pain Management Techniques Apply Cold,Distraction, Modification of Treatment,Re- positioning,Timing of Activity with Medications M4 PT-IP Mobility and Gait Start: 09/22/23 12:48 Freq: NEEDED Status: Active Protocol: Document 09/22/23 10:40 AB (Rec: 09/22/23 13:00 AB [id number]) PT-Bed Mobility Assessment Supine to Sit Supine to Sit Standby Assistance PT-Transfer Assessment Sit to and From Stand Sit to and from Stand Standby Assistance,Contact Guard Assistance,1 Person Assistance,Use of Upper Extremities Equipment Transfer Assistive Device Gait Belt,Front Wheeled Walker Orthotic/Prosthetic Devices or Brace: No Transfers Transfer Destination Bed,Chair Transfer Technique ambulated Transfer Ability Level of Assist Standby Assistance,Contact Guard Assistance,1 Person Assistance,Use of Upper Extremities Comments Mobility Comments pt supine in bed and spouse in room. pt agreed to do PT. obtained PLOF and home set up from pt and spouse. post-op folder provided and reviewed contents. Reviewed HEP. BP in supine: 108/58. heel slides completed prior to getting up. pt completed supine to sit SBA. able to sit on EOB SBA. BP in sittin/51. pt completed sit to stand CGA and max cues and ambulated using FWW CGA ~ 20 ft. pt sat on the chair. pt presents with antalgic gait and needs cues for L quads activation. BP checked: 129/ 52 caregiver training conducted. educated pt's spouse on how to use safety belt and how to assist pt. spouse was able to put safety belt on pt and assisted pt with sit to stand CGA and ambulated pt in room ~ 40 ft SBA to CGA. pt sat back on chair. educated on sit <>stand techniques and pt completed x 3 reps SBA to CGA and cues. positioned pt on the chair. call light and table placed within reach. educated pt regarding bed mobility techniques. pt and spouse understood. pt and spouse without further concerns. Gait Assessment Gait Gait Assistance Required: Standby Assistance,Contact Guard Assist Distance (Feet) 40 Able to Maintain Weight Bearing Status Yes During Gait Assistive Devices Assistive Device Gait Belt,Front Wheeled Walker Orthotic/Prosthetic Devices or Brace: No Gait Deviations General Gait Pattern Antalgic,Decreased Stride Length,Decreased Feet Clearance Factors Limiting Gait Function Factors Limiting Gait Function Decreased Activity Tolerance, Decreased Strength,Limited Range of Motion,Pain,Poor Balance,Poor Safety Awareness PT-Balance Assessment Sitting Balance and Reactions Static Sitting Balance Ability Normal Dynamic Sitting Balance Ability Good Standing Balance and Reactions Static Standing Balance Ability Fair Dynamic Standing Balance Ability Fair Device Used FWW M5 PT-IP Objective Assessments Start: 09/22/23 12:48 Freq: NEEDED Status: Active Protocol: Document 09/22/23 10:40 AB (Rec: 09/22/23 13:00 AB [id number]) Orientation Orientation/Cognition Level of Alertness Alert Orientation Name,Place,Situation Language Function Ability Hard of Hearing Safety Awareness Decreased Safety Awareness Memory Description No Deficits Noted Gross Range of Motion Lower Extremity ROM Assessment Left Impaired Impairments L knee flexion: ~ 50 deg L knee extension: ~ 10 deg less to 0 Strength Lower Extremity Strength Assessment Left Impaired Hip 4-/5 Knee 4-/5 Sensation Assessment Sensation Gross Sensation WNL Muscle Tone Muscle Tone WNL Yes M6 PT-IP Treatment Start: 09/22/23 12:48 Freq: NEEDED Status: Active Protocol: Document 09/22/23 10:40 AB (Rec: 09/22/23 13:00 AB [id number]) Physical Therapy Treatment Exercises Exercises Heel Slides Education Education Provided Precautions,Weight Bearing Status,Post-Op Packet,Safety M7 PT-IP Assessment and Plan Start: 09/22/23 12:48 Freq: NEEDED Status: Active Protocol: Document 09/22/23 10:40 AB (Rec: 09/22/23 13:00 AB [id number]) PT Summary Assessment and Plan Potential Rehabilitation Potential Fair Status of Condition at Evaluation Stable Summary Impairments Pain,ROM,Strength,Balance, Coordination,Sensation,Tone, Cognition,Bed Mobility, Transfers,Gait,Activity Tolerance Assessment Summary pt is a 68 y/o M s/p L TKA revision POD 1 and is WBAT on LLE. pt requiring SBA to CGA with mobility using FWW and plans to go home with spouse to assist pt. caregiver training conducted and spouse was able to safely assist pt. pt may go home when medically stable. Goals Bed Mobility Goal Independent Transfer Goal Independent,Front Wheeled Walker Gait Goal Independent,Front Wheel Walker Gait Distance 300 Days to Meet Goals 5 Frequency of Treatment Frequency Of Treatment Twice a Day Treatment Plan Physical Therapy Treatment Plan Bed Mobility Training,Transfer Training,Gait Training, Therapeutic Exercise,Balance Retraining,Post Op Education, Discharge Planning,Hot or Cold Pack,Neuromuscular Re-ed, Coordination Retraining,Manual Therapy Weight Bearing Status Weight Bearing Status Weight Bear as Tolerated Allowed Weight Bearing Amount (enter % LLE WBAT or #) (%) Recommendations To Nursing Amount of Assist Needed 1 Person Assist Discharge Recommendations PT Discharge Recommendations Home with Assistance, Outpatient PT Transportation Needs at Discharge Private Vehicle
== END 2023-09-22 11:57 | disposition home or self-care (01) | DRG 468 ==
PROVIDERS: Admitting Provider Orthopaedic Surgery Adult Reconstructive Orthopaedic Surgery; PCP Family Medicine; Referring Provider Physician Assistant; Visit Provider Orthopaedic Surgery Adult Reconstructive Orthopaedic Surgery
PROC: 0SPD0JZ Removal of Synthetic Substitute from Left Knee Joint, Open Approach (ICD-10-PCS; principal; 2023-09-21 10:45)
DX: T84.053A Periprosthetic osteolysis of internal prosthetic left knee joint, initial encounter (principal); T84.033A Mechanical loosening of internal left knee prosthetic joint, initial encounter; E78.5 Hyperlipidemia, unspecified; M06.9 Rheumatoid arthritis, unspecified; E03.9 Hypothyroidism, unspecified; N52.9 Male erectile dysfunction, unspecified
CPT/HCPCS: 36415; 73560; 85014; 85018; 87070; 87075; 87176; 87205; 97161; 97530; C1776; J0690; J1100; J2250; J2405; J2704; J2765; J3010; J3410

== ENCOUNTER → 2024-03-21 09:37 | Outpatient (CLI) | payer MEDICARE, SELFPAY ==
[2023-09-21 17:19] VITALS: BMI 32.3
[2024-03-21 10:06] LABS: Add Manual Diff / Slide Review NO; Basophils Absolute Auto 0 /uL (0-100); Basophils Percent Auto 0.6 % (0-2); Eosinophils Absolute Auto 500 /uL (0-450); Eosinophils Percent Auto 5.8 % (2-4); Hematocrit 47.2 % (41-53); Hemoglobin 15.8 g/dL (13.5-17.5); Lymphocytes Absolute Auto 2600 /uL (1100-4500); Mean Corpuscular HGB Conc 33.4 % (30-36); Mean Corpuscular Hemoglobin 31.2 PG (26-34); Mean Corpuscular Volume 93.5 fL (80-100); Monocytes Absolute Auto 1200 /uL (0-900); Neutrophils Absolute Auto 4000 /uL (1500-7000); Neutrophils Percent Auto 48.6 % (50-75); Platelet Count 303 X10^3/uL (150-400); Red Blood Cell Count 5.05 X10^6/uL (4.5-5.9); Red Cell Distribution Width 14.7 % (11.6-14.8); White Blood Cell Count 8.3 X10^3/uL (4.5-11.0)
[2024-03-21 10:24] LABS: Alanine Aminotransferase 24 IU/L (<50); Albumin 4.3 g/dL (3.5-5.0); Albumin Globulin Ratio 1.4 (1.0-2.8); Alkaline Phosphatase 86 U/L (38-126); Aspartate Aminotransferase 27 IU/L (17-59); BUN Creatinine Ratio 16.8 (6-22); Bilirubin Total 1.1 mg/dL (0.2-1.3); Blood Urea Nitrogen 17 mg/dL (9-20); Calcium 9.4 mg/dL (8.4-10.2); Carbon Dioxide 28 mmol/L (22-32); Chloride 101 mmol/L (98-107); Cholesterol 183 mg/dL (140-199); Estimated Glomerular Filt Rate > 60 mL/min (>60); Globulin 3.1 g/dL (1.7-4.1); Glucose 102 mg/dL (80-110); HDL Cholesterol 53 mg/dL (40-60); HEMOLYSIS < 15 (0-50); LDL Cholesterol Calculated 115 mg/dL (<100); Potassium 4.1 mmol/L (3.4-5.1); Sodium 138 mmol/L (137-145); Total Protein 7.4 g/dL (6.3-8.2); Triglycerides 74 mg/dL (35-150)
[2024-03-21 10:42] LABS: Free T4, Direct Thyroxine 1.31 ng/dL (0.78-2.19)
[2024-03-21 10:56] LABS: Thyroid Stimulating Hormone 2.63 uIU/mL (0.47-4.68)
[2024-03-21 10:58] LABS: Prostate Specific Antigen Scrn 0.616 ng/mL (0.1-4.0)
== END ==
PROVIDERS: PCP Family Medicine; Referring Provider Family Medicine; Visit Provider Family Medicine
DX: E03.9 Hypothyroidism, unspecified (principal); Z12.5 Encounter for screening for malignant neoplasm of prostate; Z00.00 Encounter for general adult medical examination without abnormal findings; R73.9 Hyperglycemia, unspecified; E78.5 Hyperlipidemia, unspecified
CPT/HCPCS: 36415; 80053; 80061; 84439; 84443; 85025; G0103

== ENCOUNTER → 2024-06-11 06:46 | Outpatient (CLI) | payer MEDICARE, SELFPAY ==
[2023-09-21 17:19] VITALS: BMI 32.3
--- NOTE | 2024-06-11 06:47 | DI.ECHO.S_ITS ---
[facility] : : [address] : : [place] : : [id number] : : Phone: [phone] Echocardiogram Report + + :Name: MAAME VICTOR Study Date: 06/11/2024 Height: 73 in : :[facility] ReadingLocation: Weight: 242 lb : : Gender: Male BSA: 2.3 m2 : :: 1955 Age: 69 yrs BP: 113/75 mmHg: :Reason For Study: ABNORMAL EKG : :Ordering Physician: RON, : :MEDINA Performed By: Say Dawkins : :Referring: MEDINA VELASQUEZ : + + Interpretation Summary 1) Normal left ventricular thickness and size with mildly reduced systolic function (EF 45-50%). 2) Mildly enlarged right ventricle with normal function. 3) There is mild mitral regurgitation. There is mild aortic regurgitation. 4) The ascending aorta is mildly enlarged at 4.1cm. 5) Compared to the Echo done 04/04/2016, LVEF has decreased from normal to mildly reduced on this study. Procedure: A two-dimensional transthoracic echocardiogram with color flow and Doppler was performed. The study quality was technically good. Comparison is made with the echocardiogram of 04/04/2016. The patient was in atrial fibrillation with heart rates between 61-88 bpm during the exam. Left Ventricle: The left ventricle is normal in size. There is normal left ventricular wall thickness. There is no ventricular septal defect visualized. The ejection fraction is estimated to be 45-50%. There is mild global hypokinesis of the left ventricle. Diastolic function could not be accurately assessed due to atrial fibrillation. Right Ventricle: The right ventricle is mildly dilated. The right ventricular systolic function is normal. Atria: Borderline left atrial enlargement. The right atrium is mildly dilated. There is no Doppler evidence for an interatrial shunt. Mitral Valve: The mitral valve leaflets are mildly calcified. There is mild mitral regurgitation. Aortic Valve: The aortic valve is trileaflet. NCC calcification. There is no aortic valve stenosis. There is mild aortic regurgitation. Tricuspid Valve: The tricuspid valve leaflets are thin and pliable. There is mild tricuspid regurgitation. The right ventricular systolic pressure is estimated to be at least 31 mmHg based on an estimated right atrial pressure of 3 mm Hg. Pulmonic Valve: The pulmonic valve leaflets are thin and pliable; valve motion is normal. There is trace pulmonic regurgitation. Great Vessels: The aortic root is normal size. The ascending aorta is mildly enlarged. The pulmonary artery is normal size. The IVC is of normal diameter and collapses greater than 50% with a sniff. This suggests a low right atrial pressure of 3 mm Hg. Pericardium/ Pleura There is no pericardial effusion. There is no pleural effusion. MMode/2D Measurements & Calculations LVIDd: 5.6 cm LVOT diam: 2.1 cm LVIDs: 3.8 cm Ao root diam: 3.3 cm FS: 32.1 % asc Aorta Diam: 4.1 cm EPSS: 1.1 cm Ao Arch Diam (Prox Trans): 2.6 cm IVSd: 1.0 cm LVPWd: 1.0 cm LV shanks. diameter/BSA (cm/m^2): 2.4 LV sys. diameter/BSA (cm/m^2): 1.6 LA A2 area: 23.2 cm2 RA long axis: 5.5 cm LA A4 area: 23.9 cm2 RA area: 19.1 cm2 LA length (vol): 6.4 cm RA vol: 56.2 ml LA vol: 73.8 ml RA : 24.1 ml/m2 LA vol index: 31.6 ml/m2 IVC diam: 1.7 cm RVD1 (basal): 3.9 cm RVD2 (mid): 2.8 cm TAPSE: 3.1 cm Doppler Measurements & Calculations Ao V2 max: 155.0 cm/sec LVOT Max Diego: 97.1 cm/sec Ao V2 mean: 119.5 cm/sec LV V1 max P.8 mmHg Ao max P.6 mmHg LV V1 VTI: 21.4 cm Ao mean P.2 mmHg MAKAYLA(I,D): 2.1 cm2 Ao V2 VTI: 35.9 cm MAKAYLA(V,D): 2.2 cm2 sev ratio: 0.59 MAKAYLA indexed to BSA (cm^2/m^2): 0.89 MV E max diego: 53.7 cm/sec TR max diego: 264.9 cm/sec MV A max diego: 40.5 cm/sec TR max P.1 mmHg MV E/A: 1.3 PA V2 max: 66.3 cm/sec Med Peak E' Diego: 8.2 cm/sec PA V2 mean: 44.6 cm/sec E/E' med: 6.5 PA mean P.90 mmHg Lat Peak E' Diego: 9.2 cm/sec PA pr(Accel): 36.2 mmHg E/E' lat: 5.8 E/e' average: 6.2 MV dec time: 0.28 sec SV(LVOT): 74.7 ml Reading Physician:11:04 AM
== END ==
PROVIDERS: PCP Family Medicine; Referring Provider Family Medicine; Visit Provider Family Medicine
DX: R00.1 Bradycardia, unspecified (principal); I51.7 Cardiomegaly; I34.0 Nonrheumatic mitral (valve) insufficiency; I35.1 Nonrheumatic aortic (valve) insufficiency
CPT/HCPCS: 93306

== ENCOUNTER → 2024-09-02 07:08 | Outpatient (CLI) | payer MEDICARE, SELFPAY ==
[2023-09-21 17:19] VITALS: BMI 32.3
[2024-09-02 08:12] LABS: Cholesterol 157 mg/dL (140-199); HDL Cholesterol 48 mg/dL (40-60); LDL Cholesterol Calculated 92 mg/dL (<100); Triglycerides 83 mg/dL (35-150)
== END ==
LOC: LAB 07:09
PROVIDERS: PCP Family Medicine; Referring Provider Internal Medicine; Visit Provider Internal Medicine
DX: E78.5 Hyperlipidemia, unspecified (principal)
CPT/HCPCS: 36415; 80061

== ENCOUNTER → 2024-09-19 07:39 | Outpatient (CLI) | payer MEDICARE, SELFPAY ==
[2023-09-21 17:19] VITALS: BMI 32.3
--- NOTE | 2024-09-19 07:41 | DI.CT.S_ITS ---
PROCEDURE: CT CHEST WO CON INDICATIONS: ANEURYSM TECHNIQUE: Noncontrast 5 mm thick sections acquired from the pulmonary apices to the posterior costophrenic angles. 1 mm lung window, 5 mm thick coronal and sagittal and 7 mm axial MIP reformats were then acquired. For radiation dose reduction, the following was used: automated exposure control, adjustment of mA and/or kV according to patient size. COMPARISON: [facility], CT, CT CHEST ABDOMEN PELVIS WITH CONTRAST, 08/16/2021, 10:45. FINDINGS: Image quality: Diagnostic. Lower Neck: No enlarged lymph nodes. Thyroid: No thyroid nodules which require sonographic follow up, per consensus guidelines. Axillae: No enlarged lymph nodes. Chest Wall: Unremarkable. Bones: Unremarkable. Lungs and Pleura: No pneumothorax or pleural effusions. Extensive partially calcified pleural plaques are again seen. There is more prominent subpleural reticulation at the right base also with some reticulation and short subpleural lines seen in the left mid to lower lung. No consolidation or dominant focal lesion seen. Heart: Heart size is normal. No pericardial effusion. Thoracic Vessels: The ascending aorta measures 4.36 cm, compared to 4.17 cm previously. Normal caliber of the aortic arch measuring 2.9 cm as well as the descending aorta measuring 2.5 cm. No saccular aneurysm. Mediastinum and [place]: No enlarged lymph nodes. Esophagus: No wall thickening. No hiatal hernia. Upper Abdomen: Visualized upper abdomen solid organs and bowel loops appear normal. IMPRESSION: 1. 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 2. Signs of prior asbestos exposure. Mildly more prominent interstitial abnormalities in the mid to lower lungs, more on the right, may be due to evolving asbestosis. Dictated by: Edward Christianson M.D. on 09/20/2024 at 17:15 Approved by: Edward Christianson M.D. on 09/20/2024 at 17:23
--- NOTE | 2024-09-19 07:41 | DI.NM.S_ITS ---
PROCEDURE: NM EXERCISE TREADMILL NON NUC COMPARISON: None. INDICATIONS: HEART FAILURE FINDINGS: Patient exercised per the standard [facility] protocol. Total exercise time was 3 minutes and 6 seconds. Test was terminated secondary to knee pain. Maximal heart rate attained is 146 bpm which is 98% of max] heart rate. Maximal blood pressure was 180/[place] [address]. LORIE +43%. 4.6 METS. Unable to comment on ischemia due to significant baseline artifact noted on the stress ECG tracings. No obvious arrhythmias noted. No chest pains voiced. Normal heart rate and blood pressure response to exercise. IMPRESSION: 1. Nondiagnostic exercise treadmill stress test due to significant baseline artifact. 2. Extremely poor exercise tolerance. Dictated by: Kiran English M.D. on 09/19/2024 at 16:30 Approved by: Kiran English M.D. on 09/19/2024 at 16:32
== END ==
PROVIDERS: PCP Family Medicine; Referring Provider Internal Medicine; Visit Provider Internal Medicine
DX: I71.21 Aneurysm of the ascending aorta, without rupture (principal); I50.22 Chronic systolic (congestive) heart failure
CPT/HCPCS: 71250; 93017

== ENCOUNTER → 2025-01-10 08:15 | Outpatient (CLI) | payer MEDICARE, SELFPAY ==
[2023-09-21 17:19] VITALS: BMI 32.3
[2025-01-10 09:57] LABS: Blood Urea Nitrogen 14 mg/dL (9-20); Calcium 9.1 mg/dL (8.4-10.2); Carbon Dioxide 30 mmol/L (22-32); Estimated Glomerular Filt Rate > 60 mL/min (>60); Glucose 112 mg/dL (70-99); HEMOLYSIS < 15 (0-50)
[2025-01-10 10:33] LABS: Chloride 102 mmol/L (98-107); Potassium 4.6 mmol/L (3.4-5.1); Sodium 137 mmol/L (137-145)
== END ==
PROVIDERS: PCP Family Medicine; Referring Provider Family Medicine; Visit Provider Internal Medicine
DX: I50.22 Chronic systolic (congestive) heart failure (principal)
CPT/HCPCS: 36415; 80048

== ENCOUNTER → 2025-01-27 07:42 | Outpatient (CLI) | payer MEDICARE, SELFPAY ==
[2023-09-21 17:19] VITALS: BMI 32.3
--- NOTE | 2025-01-27 07:42 | DI.NM.S_ITS ---
PROCEDURE: NM ANIL PERF SPECT R&S PHARM Rest and pharmacological stress myocardial perfusion SPECT with gated imaging and ejection fraction RADIOPHARMACEUTICAL: 25 mCi Tc-99m tetrafosmin IV at rest and 27.5 mCi Tc-99m tetrafosmin IV at peak effect of pharmacological stress. [id number] was performed. INDICATIONS: heart failure with mid range ejection fraction TECHNIQUE: Radiopharmaceutical was injected at peak stress test, and also at rest. SPECT images were obtained. SPECT myocardial perfusion images were displayed in short axis, horizontal long axis, and vertical long axis views. Gated images were reviewed using [employer] software. COMPARISON: None. CARDIAC STRESS: A pharmacologic stress test was performed under the supervision of an attending staff, using an infusion of lexiscan 0.4mg IV x1. Hemodynamic data: There is normal blood pressure and heart rate response to pharmacologic stress. Symptoms: The patient denied anginal chest pain. Aminophylline: none EKG: No diagnostic changes of ischemia; no ectopy. FINDINGS: Raw data: There is good myocardial uptake of radiotracer. No significant motion artifacts. Left ventricle function: Gated images demonstrate normal left ventricular wall thickening. No segmental wall motion abnormalities. No transient ischemic dilation; TID is 0.98 (normal less than 1.3). Left ventricle resting end diastolic volume is 135 mL. Left ventricle stress ejection fraction is 49% post stress; normal range is above 45%. Myocardial perfusion: There is normal distribution of activity in the right and left ventricular myocardium with stress prone images. No fixed or reversible perfusion defects. IMPRESSION: Low risk, normal pharm nuclear stress test from inducible ischemia standpoint. LVEF 49% post stress. No regional wall motion abnormalities. No angina and no ST changes during the study. Dictated by: Dinesh Elias MD on 01/28/2025 at 13:13 Approved by: Dinesh Elias MD on 01/28/2025 at 13:15
== END ==
LOC: NUCM 07:42
PROVIDERS: PCP Family Medicine; Referring Provider Internal Medicine; Visit Provider Internal Medicine
DX: I50.22 Chronic systolic (congestive) heart failure (principal); R94.39 Abnormal result of other cardiovascular function study
CPT/HCPCS: 78452; 93017; A9502; J2785